=== PATIENT | male | born 1995 | race African-American/Black ===

== ENCOUNTER 2018-02-18 08:30 | Emergency (ER) | payer SELFPAY ==
[~2018-02-18] VITALS: Ht 193 cm; Wt 70.3 kg
[2018-02-18] MEDS ORDERED: IV NORMAL SALINE 1,000ML 1,000 ML IV SCH (08:42)
[2018-02-18] MEDS ORDERED: 0.9 % SODIUM CHLORIDE 10 ML DISP.SYRIN. IV PRN (08:45)
--- NOTE | 2018-02-18 08:49 | PHYS DOC ---
Past History Past Medical History: Asthma Past Surgical History: No Surgical History Smoking: Cigarettes, Greater than 1 pack/day Alcohol Use: None Drug Use: None, Marijuana Adult General Chief Complaint Chief Complaint: URINARY RETENTION [facility] HPI Patient is a pleasant 22-year-old male with a history of urinary retention from unclear etiology who has a history of asthma and does smoke presents with inability to urinate for last 4 hours and complained of hematuria the last several days. Patient denies any new sexual contacts, denies any history of STDs or renal drainage chest blood in his urine and difficulty urinating. He has some suprapubic abdominal pain that began several days ago before this event occurred patient denies any flank pain, nausea, vomiting, diarrhea, fevers , chills, trauma to the abdomen. 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 He denies any strain that causes worsening symptoms. Review of Systems Review of Systems Constitutional: Denies fever or chills [] Eyes: Denies change in visual acuity, redness, or eye pain [] HENT: Denies nasal congestion or sore throat [] Respiratory: Denies cough or shortness of breath [] Cardiovascular: No additional information not addressed in HPI [] GI: Positive for lower abdominal pain negative for nausea vomiting diarrhea or bloody stools. : positive for hematuria positive for urgency some dysuria denies discharge or penile rash[] Musculoskeletal: Denies back pain or joint pain [] Integument: Denies rash or skin lesions [] Neurologic: Denies headache, focal weakness or sensory changes [] Endocrine: Denies polyuria or polydipsia [] All other systems were reviewed and found to be within normal limits, except as documented in this note. Physical Exam Physical Exam Other vital signs on the chart within normal limits Constitutional: Well developed, well nourished, no acute distress, non-toxic appearance. [] Cardiovascular:Heart rate regular rhythm, no murmur [] Lungs & Thorax: Bilateral breath sounds clear to auscultation [] Abdomen: Bowel sounds normal, soft, no tenderness, no masses, no pulsatile masses. [] Skin: Warm, dry, no erythema, no rash. [] Back: No tenderness, no CVA tenderness. [] Neurologic: Alert and oriented X 3 Psychologic: Affect normal, judgement normal, mood normal. [] EKG EKG [] Radiology/Procedures Radiology/Procedures [] [address] [address] IMAGING REPORT Signed PATIENT: PRINCESS RUBIO ACCOUNT: [id number] : 1995 LOCATION: ER AGE: 22 SEX: M EXAM STATUS: REG ER ORD. PHYSICIAN: RASHEL WALDEN MD REASON: lower ab pain with urinary retention PROCEDURE: CT ABDOMEN PELVIS WO CONTRAST Indication: Lower abdominal pain. Urinary retention Technique: Axial images and coronal and sagittal reformatted images are provided. No comparison is available. One or more of the following individualized dose reduction techniques were utilized for this examination: 1. Automated exposure control 2. Adjustment of the mA and/or kV according to patient size 3. Use of iterative reconstruction technique Findings: The lung bases are clear. There is no pleural effusion. The heart is not enlarged. Solid organ evaluation is limited without contrast. Liver, gallbladder, spleen, pancreas, and adrenals are unremarkable. There is no obstructing or nonobstructing renal calculus. Aorta is normal caliber. Lack of IV or oral contrast limits evaluation of bowel. Paucity of intra-abdominal fat also limits evaluation of bowel. There is no definite small bowel obstruction or mural thickening. Normal appendix is visualized in the pelvis. Colon is grossly unremarkable. Bladder is decompressed. Prostate does not appear enlarged. No pelvic fluid or adenopathy is apparent. Bony structures are intact. IMPRESSION: 1. No acute abdominal findings. Electronically signed by: Sony Acuna MD (02/18/2018 9:18 AM) [facility] DICTATED AND SIGNED BY: SONY ACUNA MD DATE: 02/18/18 0911 CC: RASHEL WALDEN MD; PCP,NO ~ Course & Med Decision Making Course & Med Decision Making Pertinent Labs and Imaging studies reviewed. (See chart for details) []he is a pleasant 22-year-old male with a known history of prior urinary retention presents with hematuria for last several days and suprapubic pain. Differential diagnosis includes but not limited to early appendicitis, UTI, pyonephritis, kidney stones, etc. transmitted disease with retained urine secondary to urethral spasm, prostatitis, cystitis or other inflammatory change within the bladder or pelvis. His urinalysis reviewed by me demonstrate signs of inflammation to include white blood cells, some red blood cells and bacteria. There is a few epithelia cells well but I believe given his symptoms are treated empirically as a UTI. Patient's CAT scan reviewed by me read by radiologist demonstrated no acute intra-abdominal pathology causing this patient's symptoms. Specifically no appendicitis, no kidney stones no pyonephritis noted Impression: UTI, hematuria discharge: I've spoken with the patient and/or caregivers. I've explained the patient's condition, diagnosis and treatment plan based on information available to me at this time. I've answered the patient's and/or caregivers questions and addressed any concerns. The patient and/or caregivers have a good understanding the patient's diagnosis, condition and treatment plan as can be expected at this point. Vital signs have been stabilized. The patient's condition is stable for discharge from the emergency department. The patient will pursue further outpatient evaluation with her primary care provider or other designated consulting physician as outlined in the discharge instructions. Patient and/or caregivers are agreeable to this plan of care and follow-up instructions have been explained in detail. The patient and/or caregivers have received these instructions in written format and expressed understanding of these discharge instructions. The patient and her caregivers are aware that if any significant change in condition or worsening of symptoms should prompt him to immediately return to this of the closest emergency department. If an emergent department is not readily available I would encourage him to call 911. Stephanie Disclaimer Stephanie Disclaimer This electronic medical record was generated, in whole or in part, using a voice recognition dictation system. Departure Departure: Impression: Primary Impression: UTI (urinary tract infection) Additional Impression: Hematuria Disposition: HOME, SELF-CARE Condition: IMPROVED Referrals: PCP,NO (PCP) Patient Instructions: Hematuria, Adult, Urinary Retention, Acute, Male, Urinary Tract Infection Additional Instructions: discharge: I've spoken with the patient and/or caregivers. I've explained the patient's condition, diagnosis and treatment plan based on information available to me at this time. I've answered the patient's and/or caregivers questions and addressed any concerns. The patient and/or caregivers have a good understanding the patient's diagnosis, condition and treatment plan as can be expected at this point. Vital signs have been stabilized. The patient's condition is stable for discharge from the emergency department. The patient will pursue further outpatient evaluation with her primary care provider or other designated consulting physician as outlined in the discharge instructions. Patient and/or caregivers are agreeable to this plan of care and follow-up instructions have been explained in detail. The patient and/or caregivers have received these instructions in written format and expressed understanding of these discharge instructions. The patient and her caregivers are aware that if any significant change in condition or worsening of symptoms should prompt him to immediately return to this of the closest emergency department. If an emergent department is not readily available I would encourage him to call 911. Scripts Ibuprofen (MOTRIN IB) 200 Mg Tablet 200 MG PO QID for 7 Days, #28 TAB Prov: RASHEL WALDEN MD 02/18/18 Sulfamethoxazole/Trimethoprim (BACTRIM DS TABLET) 1 Each Tablet 1 TAB PO BID, #20 TAB Prov: RASHEL WALDEN MD 02/18/18 Problem Qualifiers RASHEL WALDEN MD Feb 18, 2018 08:49
[2018-02-18 09:10] LABS: BASO # 0.1 x10^3/uL (0.0-0.2); BASO % 1 % (0-3); EOS # 0.1 x10^3/uL (0.0-0.7); EOS % 1 % (0-3); HEMATOCRIT 46.7 % (39.0-53.0); HEMOGLOBIN 15.1 g/dL (13.0-17.5); LYMPH # 2.6 x10^3/uL (1.0-4.8); LYMPH % 36 % (24-48); MEAN CORPUSCULAR HEMOGLOBIN 24 pg (25-35); MEAN CORPUSCULAR HGB CONC 32 g/dL (31-37); MEAN CORPUSCULAR VOLUME 75 fL (79-100); MONO # 0.7 x10^3/uL (0.0-1.1); MONO % 10 % (0-9); NEUT # 3.7 x10^3uL (1.8-7.7); NEUT % 52 % (31-73); PLATELET COUNT 264 x10^3/uL (140-400); RED BLOOD COUNT 6.27 x10^6/uL (4.30-5.70); RED CELL DISTRIBUTION WIDTH 14.3 % (11.5-14.5); WHITE BLOOD COUNT 7.1 x10^3/uL (4.0-11.0)
[2018-02-18] MEDS ORDERED: KETOROLAC 30 MG/ML VIAL. IV ONE (09:15)
[2018-02-18 09:17] LABS: BILIRUBIN,URINE NEG (NEG); CLARITY,URINE HAZY; COLOR,URINE YELLOW; GLUCOSE,URINE NEG (NEG); NITRITE,URINE NEG (NEG); UROBILINOGEN,URINE 0.2 mg/dL (0.2 mg/dL)
[2018-02-18 09:18] LABS: BACTERIA,URINE FEW /HPF (0-FEW); GRANULAR CASTS,URINE OCC /HPF; HYALINE CASTS, URINE FEW /HPF; SQUAMOUS EPITHELIAL CELL,UR OCC /LPF
--- NOTE | 2018-02-18 09:22 | RAD ---
Indication: Lower abdominal pain. Urinary retention Technique: Axial images and coronal and sagittal reformatted images are provided. No comparison is available. One or more of the following individualized dose reduction techniques were utilized for this examination: 1. Automated exposure control 2. Adjustment of the mA and/or kV according to patient size 3. Use of iterative reconstruction technique Findings: The lung bases are clear. There is no pleural effusion. The heart is not enlarged. Solid organ evaluation is limited without contrast. Liver, gallbladder, spleen, pancreas, and adrenals are unremarkable. There is no obstructing or nonobstructing renal calculus. Aorta is normal caliber. Lack of IV or oral contrast limits evaluation of bowel. Paucity of intra-abdominal fat also limits evaluation of bowel. There is no definite small bowel obstruction or mural thickening. Normal appendix is visualized in the pelvis. Colon is grossly unremarkable. Bladder is decompressed. Prostate does not appear enlarged. No pelvic fluid or adenopathy is apparent. Bony structures are intact. IMPRESSION: 1. No acute abdominal findings. Electronically signed by: Sony Acuna MD (02/18/2018 9:18 AM) [id number]
[2018-02-18 09:25] LABS: POTASSIUM ISTAT 3.3 mmol/L (3.5-5.0)
[2018-02-18 09:27] LABS: HEMOGLOBIN ISTAT 16.7 gm/dL
[2018-02-18] MEDS ORDERED: IBUP200T44 PO (09:29)
[2018-02-18] MEDS ORDERED: SULF1TAB24 PO (09:29)
[2018-02-18 09:35] VITALS: BP 118/77
== END 2018-02-18 10:00 | disposition home or self-care (01) ==
LOC: ER 08:30
DX: N39.0 Urinary tract infection, site not specified (principal); R31.9 Hematuria, unspecified; J45.909 Unspecified asthma, uncomplicated; F17.210 Nicotine dependence, cigarettes, uncomplicated; F12.10 Cannabis abuse, uncomplicated
CPT/HCPCS: 36415; 74176; 80047; 81001; 85025; 87086; 96361; 96374; 99285; J1885; J7030